=== PATIENT | female | born 1945 | race Caucasian/White ===

== ENCOUNTER → 2017-05-07 | Day surgery (SDC) | payer MEDICARE ==
[~2017-05-07] MED LIST: AMLO2.5T PO; ASPI81TA11 PO; ATOR1TAB18 PO; BUPIVACAINE HCL PF 0.75% 30 ML VIAL ONE; CALC1TAB69 PO; GABA300C5 PO; HYDR-3516 PO; HYDR-3535 PO; LISI10TA3 PO; LOSA50TA PO; METO50TA11 PO; OCUVTAB4 PO; PROPOFOL 200 MG/20 ML AMP IV ONE; PROZ20CA11 PO; TRIAMCINOLONE ACETONIDE 40 MG/ML VIAL I-ARTICULR ONE
--- NOTE | 2017-05-11 17:41 | M6 ---
cc: KOSTA WAGGONER M.D. DATE: 05/07/2017 DATE OF : 1945 PROCEDURE Fluoroscopically guided injection bilateral lumbar facet joints (bilateral L3-4, L4-5 and L5-S1 facet joints). History and physical was completed and signed. Consent was signed. Procedure site was marked. Medications were listed and reconciled. Pain score was recorded. Allergies were noted. Time out was taken. Fluoroscopy time was recorded where applicable. Sedation was administered or directed by Dr. Waggoner. The patient was given oxygen. The patient was monitored by a registered nurse. Total procedure time was greater than 15 minutes. IV was started, blood pressure cuff, pulse oximeter and EKG were applied. The patient was placed in the prone position on a Constantin table sedated with small amounts of propofol titrated to effect. Vital signs were monitored and remained stable throughout the procedure. Fluoroscopy was used in a Tru dog view to clearly visualize the bilateral lumbar facet joints at L3-4, L4-5 and L5-S1. Separate sterile 3-1/2-inch 25-gauge spinal needles were advanced into these joints under fluoroscopic guidance. There was negative aspiration for blood or any other type of fluid and at each location the patient was given 1 mL of Marcaine 0.75% which contained 10 mg of Kenalog. Following the procedure the patient was taken to the recovery room with stable vital signs neurologically intact. She will be evaluated immediately and with followup. W. MD DYAN Winters/lilian /9:09 AM /5:34 PM
== END | disposition home or self-care (01) ==
LOC: PHSDC 06:44
PROVIDERS: ATTEND Pain Medicine Interventional Pain Medicine
DX: M54.5 Low back pain (principal); I10 Essential (primary) hypertension; I25.2 Old myocardial infarction; K21.9 Gastro-esophageal reflux disease without esophagitis
CPT/HCPCS: 64493; 64494; 64495; 99152; J3301

== ENCOUNTER → 2018-01-24 | Day surgery (SDC) | payer MEDICARE ==
[~2018-01-24] MED LIST changes: +ACETAMINOPHEN/HYDROcodone 325 MG/5 MG TAB ONE; -ASPI81TA11 PO; +ASPI81TA23 PO; -ATOR1TAB18 PO; -BUPIVACAINE HCL PF 0.75% 30 ML VIAL ONE; -CALC1TAB69 PO; +CALC625T13 PO; -GABA300C5 PO; +KETOROLAC TROMETHAMINE 30 MG/ML (IVP) VIAL IV PUSH ONE; +LACTATED RINGER'S 1000 ML INJ 1,000 ML ONE; -LISI10TA3 PO; +METO1TAB9 PO; -METO50TA11 PO; +MIDAZOLAM HCL 2 MG/2 ML VIAL ONE; +ONDANSETRON HCL 4 MG/2 ML VIAL IV PUSH ONE; -PROZ20CA11 PO; +SODIUM CHLORIDE 0.9% 100 ML BAG IV ONE; -TRIAMCINOLONE ACETONIDE 40 MG/ML VIAL I-ARTICULR ONE; +ceFAZolin INJ 1,000 MG VIAL ONE
--- NOTE | 2018-01-24 18:10 | TN ---
cc: Zeeshan Calderón MD DATE OF SURGERY: 01/24/2018 DATE OF SURGERY: 01/24/2018 PREOPERATIVE DIAGNOSIS: Right breast invasive ductal carcinoma. POSTOPERATIVE DIAGNOSIS: Right breast invasive ductal carcinoma. PROCEDURE PERFORMED: 1. Needle localized lumpectomy (partial mastectomy), right breast. 2. Right axillary sentinel lymph node biopsy. 3. Placement of intraoperative radiation therapy catheter. ATTENDING SURGEON: Zeeshan Calderón MD GLOBAL TRANSPORTATION MANAGER SURGEONS: CEDRIC Castro. ESTIMATED BLOOD LOSS: 25 mL. COMPLICATIONS: None. FINDINGS: 1. Two sentinel lymph nodes, hot, minimally palpable. No other palpable lymph nodes in the right axilla. 2. A less than 1 cm palpable mass at the site of the needle localization with intraoperative consultation showing a clip and mass in the specimen. 3. IORT performed by Dr. Mateo salcedo with the size 4.0 radiation probe. INDICATIONS FOR PROCEDURE: The patient is a 72-year-old female who was recently diagnosed with right breast invasive ductal carcinoma. The patient is undergoing evaluation for possible breast conservation and was found to be a candidate for treatment as the patient had clinical stage I disease. After discussion with the patient about the risks, benefits and alternatives to needle localized lumpectomy, sentinel lymph node biopsy and IORT, she agreed to undergo the procedure. Nurse practitioner, Suri Marcial's presence was required throughout the procedure due to her experience and expertise in the lumpectomy and IORT procedure. Myself and CEDRIC Bagley were present and scrubbed for all the above procedures. DESCRIPTION OF PROCEDURE: The patient was taken to the operating room at [facility], placed in the supine position where patient underwent LMA airway and a general anesthetic. The patient had undergone preoperative lymphoscintigraphy as well as needle localization of the right breast. We performed the sentinel lymph node biopsy first. We used local anesthetic below the right axillary hairline and incised this with a 15 blade scalpel. We used Bovie electrocautery to dissect through the subcutaneous tissue and open the clavipectoral fascia. Once we got into the axillary fat pad, we used the probe to guide us and the 2 lymph nodes that were hot and palpable were found in normal anatomic location. These were excised completely with the Bovie electrocautery. We got excellent hemostasis with the Bovie electrocautery. These both were adjacent nodes and were both hot and palpable. They were passed off for permanent processing. The background of the axilla was noted and no further sentinel nodes were found with palpation or with the probe. We irrigated out the right axilla while suctioning it clear. We closed the clavipectoral fascia with interrupted 3-0 Vicryl suture. We closed the skin with 4-0 Monocryl and Dermabond. We then turned our attention towards the lumpectomy. We performed periareolar incision above the areola with a 15 blade scalpel after instillation of local anesthetic. This was approximately 25% of the circumferential areolar margin. We used Bovie electrocautery to dissect through the subcutaneous tissue and into the breast parenchyma as we tunneled superiorly, as the patient's mass was superior to the nipple. We dissected down to the area of the mass as identified by the wire. We dissected 360 degrees around the specimen and divided the wire with the wire cutters. The portion of the wire outside of the skin was removed and passed off of the field. We then used again Bovie electrocautery to take the posterior margin, which was well above the pectoralis fascia and removed the specimen from the patient. It was marked with a short stitch superior and a long stitch lateral, and the wire was oriented in the specimen from medial to lateral. We then had grossly negative margins down the specimen. I did elect to perform additional margins as the patient was planned to get IORT and has quite dense breast tissue and to ensure complete removal of the specimen and decrease the chance of false positive margins. We took 6 margins anterior, posterior, medial, lateral, superior, and inferior with the Metzenbaum scissors. These were marked with a stitch for true margin and passed off individually as specimens for pathologic processing. We, at this point in time, ensured we had excellent hemostasis in the cavity. We sized this. This was approximately 4 cm. We used the 4.0 cm IORT probe into the lumpectomy cavity and it fit just about perfectly in the lumpectomy cavity abutting all the tissue and edges of the cavity and all margins. We did place a pursestring suture of 0 Prolene subcutaneously at the incision and pulled this down to ensure good position of all tissue to the probe. Ultrasound revealed adequate skin margins per Dr. Venegas's evaluation who was present throughout this portion of the procedure. We at this point in time did have confirmation that the specimen was removed by radiology and we proceeded with IORT per protocol. Please see Dr. Venegas's separate documentation. Once this was performed, we removed the IORT probe and shielding in standard fashion. The pursestring suture was removed from the patient. I inspected the cavity. There was all viable tissue with no evidence of any bleeding or complication. We closed the breast parenchyma with interrupted 3-0 Vicryl sutures. We closed the skin with 4-0 Monocryl and Dermabond was applied. At this point in time, the patient was discontinued from anesthesia and taken to the PACU in stable condition. The patient tolerated the procedure well. There were no apparent complications. All counts were correct. Myself and nurse practitioner, Suri Marcial were present and scrubbed for the entire procedure. MD AMOR Yi/PHOEBE , 05:04 PM , 06:09 PM
== END | disposition home or self-care (01) ==
LOC: ESDC 09:04
PROVIDERS: ATTEND Surgery
DX: C50.911 Malignant neoplasm of unspecified site of right female breast (principal)
CPT/HCPCS: 00400; 01610; 19294; 19301; 38525; 88307; J0690; J1885; J2250; J2405; J3010; J7120; 77290; 77300; 77334; 77370; 77424; 77469

== ENCOUNTER 2018-02-01 09:41 | Inpatient (IN) | payer MEDICARE ==
[~2018-02-01] VITALS: Ht 160 cm; Wt 76.7 kg
[~2018-02-01 09:41] MED LIST changes: -ACETAMINOPHEN/HYDROcodone 325 MG/5 MG TAB ONE; -KETOROLAC TROMETHAMINE 30 MG/ML (IVP) VIAL IV PUSH ONE; -LACTATED RINGER'S 1000 ML INJ 1,000 ML ONE; -MIDAZOLAM HCL 2 MG/2 ML VIAL ONE; -ONDANSETRON HCL 4 MG/2 ML VIAL IV PUSH ONE; -PROPOFOL 200 MG/20 ML AMP IV ONE; -SODIUM CHLORIDE 0.9% 100 ML BAG IV ONE; -ceFAZolin INJ 1,000 MG VIAL ONE
[2018-02-01 09:43] VITALS: BP 149/67; PULSE 101; RESP 16; TEMP 99.7; O2SAT 96
[2018-02-01] MEDS ORDERED: PANT20TA2 PO (10:07)
[2018-02-01] MEDS ORDERED: EZET10 PO (10:07)
[2018-02-01] MEDS ORDERED: FIBE625T10 PO (10:07)
[2018-02-01] MEDS ORDERED: PROZ20CA11 PO (10:07)
[2018-02-01] MEDS ORDERED: ARTHTAB5 PO (10:07)
--- NOTE | 2018-02-01 10:16 | PD ---
HPI Chief Complaint: Abdominal Pain Time Seen by Provider: 09:55 Travel History International Travel<30 days: No Contact w/Intl Traveler<30days: No Traveled to known affect area: No History of Present Illness HPI Patient reports that the emergency department complaint of constipation recently had a lumpectomy last week for breast cancer, but only took one Lortab for pain. States that she had no bowel movement Sunday or Sunday, and took Senokot Sunday night. At that time she developed left-sided abdominal pain. Then tried mag citrate and fleets enema the recommendation of the surgeon, but no relief. She also took Dulcolax suppository last night and reportedly passed out little bit of liquid stool about 4 AM today and more at 8 AM today. She reports decreased appetite and p.o. intake other than water. Abdominal pain is described as being diffuse lower abdomen, intermittent, last approximately 1 or 2 minutes duration, nonradiating, no alleviating or aggravating factors. No fever but reports chills, no nausea but reports an episode of post tussive emesis last night (water), positive dysuria, no urinary frequency, and she reports passing flatus. She denies chest pain or shortness of breath or recent antibiotic use. PFSH Past Medical History Hx Anticoagulant Therapy: Yes (BABY ASA DAILY) Cancer: Yes (Breast ) Cardiovascular Problems: Yes (VT, HTN, STENT) High Cholesterol: Yes Diabetes: No Endocrine: No Gastrointestinal Disorders: Yes (GERD, BLOCKAGE BILE DUCT) Genitourinary: No Hepatitis: No Hiatal Hernia: No Hypertension: Yes Immune Disorder: No Medical other: No Musculoskeletal: Yes (SCIATICA GONZALO., ARTHRITIS) Neurologic: Yes (RIGHT FACIAL STEVENSON'S PALSY HX) Psychiatric: Yes (DEPRESSION) Reproductive: No Respiratory: No Thyroid Disease: No Tetanus Vaccination: > 5 Years Influenza Vaccination: Yes ?: Not Past Surgical History Abdominal Surgery: Yes (CHOLECYSTECTOMY) AICD: No Body Medical Devices: STENT IN BILE DUCT Cardiac Surgery: No Ear Surgery: No Endocrine Surgery: No Eye Surgery: No Genitourinary Surgery: No Gynecologic Surgery: No Joint Replacement: No Oral Surgery: Yes (T & A) Pacemaker: No Thoracic Surgery: No Other Surgery: Yes (ERCP, Rt. lumpectomy ) Family History Narrative Family History CVA, coronary artery disease Social History Alcohol Use: Yes (Rare) Tobacco Use: No Substance Use: No Allergies-Medications (Allergen,Severity, Reaction): Coded Allergies: No Known Allergies (Unverified Adverse Reaction, Unknown, 02/01/18) Reported Meds & Prescriptions Reported Meds & Active Scripts Active Reported Fiber (Calcium Polycarbophil) 625 Mg Tab 625 Mg PO BID Prozac (Fluoxetine HCl) 20 Mg Cap 20 Mg PO DAILY Arthrotec 75 (Diclofenac-Misoprostol) 75-0.2 Mg Tab 1 Tab PO BID Pantoprazole (Pantoprazole Sodium) 20 Mg Tab 20 Mg PO DAILY Zetia (Ezetimibe) 10 Mg Tab 10 Mg PO DAILY Amlodipine (Amlodipine Besylate) 2.5 Mg Tab 2.5 Mg PO DAILY Hydrocodone-Acetaminophen 5-325 mg Tab 1 Tab PO Q6H PRN Aspirin EC (Aspirin) 81 Mg Tabdr 81 Mg PO DAILY Losartan (Losartan Potassium) 50 Mg Tab 50 Mg PO BID Metoprolol Succinate ER 24 HR (Metoprolol Succinate) 50 Mg Tab 50 Mg PO TID Preservision Areds (Multiple Vitamins W/ Minerals) 1 Tab 1 Tab PO BID Review of Systems Except as stated in HPI: all other systems reviewed are Neg Physical Exam Narrative GENERAL: No acute distress SKIN: Focused skin assessment warm/dry. HEAD: Atraumatic. Normocephalic. EYES: Ocular muscles intact. No scleral icterus. No injection or drainage. ENT: No nasal bleeding or discharge. Mucous membranes pink and moist. NECK: Trachea midline. No JVD. CARDIOVASCULAR: Regular rate and rhythm. No murmur appreciated. RESPIRATORY: No accessory muscle use. Clear to auscultation. Breath sounds equal bilaterally. GASTROINTESTINAL: Abdomen soft, effuse tenderness, nondistended. Hepatic and splenic margins not palpable. MUSCULOSKELETAL: No obvious deformities. No clubbing. No cyanosis. No edema. NEUROLOGICAL: Awake and alert. No obvious cranial nerve deficits. Motor grossly within normal limits. Normal speech. PSYCHIATRIC: Appropriate mood and affect; insight and judgment normal. Data Data Last Documented VS Vital Signs Date Time Temp Pulse Resp B/P (MAP) Pulse Ox O2 Delivery O2 Flow Rate FiO2 02/01/18 11:10 97 14 124/63 (83) 95 Room Air 02/01/18 09:43 99.7 Orders Orders Urinalysis - C+S If Indicated (02/01/18 09:43) Complete Blood Count With Diff (4/20/18 10:08) Comprehensive Metabolic Panel (02/01/18 10:08) Lipase (02/01/18 10:08) Abdomen, Flat & Upright (02/01/18 ) Ct Abd/Pel W Iv Contrast(Rout) (02/01/18 11:51) Iohexol 350 Inj (Omnipaque 350 Inj) (02/01/18 12:22) Lactic Acid (02/01/18 13:09) Sodium Chlor 0.9% 1000 Ml Inj (Ns 1000 M (02/01/18 13:45) Sodium Chlor 0.9% 1000 Ml Inj (Ns 1000 M (02/01/18 14:00) Labs Laboratory Tests Test 02/01/18 10:30 02/01/18 11:06 02/01/18 13:20 White Blood Count 20.4 TH/MM3 Red Blood Count 4.70 MIL/MM3 Hemoglobin 14.7 GM/DL Hematocrit 43.6 % Mean Corpuscular Volume 92.9 FL Mean Corpuscular Hemoglobin 31.2 PG Mean Corpuscular Hemoglobin Concent 33.6 % Red Cell Distribution Width 14.2 % Platelet Count 301 TH/MM3 Mean Platelet Volume 7.1 FL Neutrophils (%) (Auto) 80.4 % Lymphocytes (%) (Auto) 5.2 % Monocytes (%) (Auto) 10.3 % Eosinophils (%) (Auto) 0.6 % Basophils (%) (Auto) 3.5 % Neutrophils # (Auto) 16.4 TH/MM3 Lymphocytes # (Auto) 1.1 TH/MM3 Monocytes # (Auto) 2.1 TH/MM3 Eosinophils # (Auto) 0.1 TH/MM3 Basophils # (Auto) 0.7 TH/MM3 CBC Comment DIFF FINAL Differential Comment Blood Urea Nitrogen 19 MG/DL Creatinine 1.00 MG/DL Random Glucose 161 MG/DL Total Protein 6.9 GM/DL Albumin 2.7 GM/DL Calcium Level 8.9 MG/DL Alkaline Phosphatase 99 U/L Aspartate Amino Transf (AST/SGOT) 14 U/L Alanine Aminotransferase (ALT/SGPT) 17 U/L Total Bilirubin 0.6 MG/DL Sodium Level 138 MEQ/L Potassium Level 3.8 MEQ/L Chloride Level 99 MEQ/L Carbon Dioxide Level 28.8 MEQ/L Anion Gap 10 MEQ/L Estimat Glomerular Filtration Rate 54 ML/MIN Lipase 42 U/L Urine Collection Type CLEAN CATCH Urine Color YELLOW Urine Turbidity CLEAR Urine pH 5.0 Urine Specific [place] GREATER/EQUAL 1.030 Urine Protein 30 mg/dL Urine Glucose (UA) NEG mg/dL Urine Ketones 40 mg/dL Urine Occult Blood NEG Urine Nitrite POS Urine Bilirubin NEG Urine Urobilinogen 1.0 MG/DL Urine Leukocyte Esterase TRACE Urine WBC 3-5 /hpf Urine Squamous Epithelial Cells 0-5 /hpf Microscopic Urinalysis Comment CULT NOT INDICATED Urine Collection Time 11:06 Lactic Acid Level 1.5 mmol/L MDM Medical Decision Making Medical Screen Exam Complete: Yes Emergency Medical Condition: Yes Interpretation(s) Last Impressions Abdomen/Pelvis CT 02/01/18 1151 Signed Impressions: Service Date/Time: Thursday, February 01, 2018 12:08 - CONCLUSION: 1. Abnormal left colon diagnostic of a colitis. There is circumferential wall thickening involving the distal half of the transverse colon, the entire descending colon , and the proximal sigmoid colon. Infectious, inflammatory, or ischemic etiologies should be considered. 2. There is mild to moderate atherosclerotic disease. No mesenteric vascular occlusion is seen. 3. There is trace free fluid in the pelvis, likely reactive secondary to the colon inflammation. Aj Ibanez MD Abdomen X-Ray 02/01/18 0000 Signed Impressions: Service Date/Time: Thursday, February 01, 2018 10:19 - CONCLUSION: Nonspecific bowel gas pattern. I do not see renal stone. Usman Troncoso MD FACR Differential Diagnosis Bowel obstruction, constipation, diverticular disease, abdomen perforation, UTI , pancreatitis Narrative Course Patient presents the emergency department with abdominal pain and constipation. Will check abdominal series x-ray and labs. Elevated wbc count, normmal lactate, will order CT abd/pelvis. Ct + for colitis, spoke with patient's GI doctor, Dr. Finney. Advised to hold abx, give IVF, admit, and they will see patient in hospital today. 1423: Admit to hospitalist in ER. Physician Communication Physician Communication 1307: Called patient's GI doctor, Dr. Finney. 1340: Dr. Finney-> Admit patient, they will see her this evening, IV hydration, no antibiotics as this is likely low flow state, dehydration. Written for 1L IV NS and 125cc/hr IV after bolus. 1427: Admitted to hospitalist, who is in ER. Diagnosis Primary Impression: Colitis Admitting Information Admitting Physician Requests: Admit Condition: Stable Awa Long MD Feb 01, 2018 10:16
[2018-02-01 10:43] LABS: AUTOMATED NEUTROPHIL # 16.4 TH/MM3 (1.8-7.7); BASOPHIL # 0.7 TH/MM3 (0-0.2); BASOPHIL % 3.5 % (0.0-2.0); EOSINOPHIL # 0.1 TH/MM3 (0-0.4); EOSINOPHIL % 0.6 % (0.0-4.0); HEMATOCRIT 43.6 % (35.0-46.0); HEMOGLOBIN 14.7 GM/DL (11.6-15.3); LYMPH % 5.2 % (9.0-44.0); LYMPHOCYTE # 1.1 TH/MM3 (1.0-4.8); MEAN CELL VOLUME 92.9 FL (80.0-100.0); MEAN CORPUSCULAR HEMOGLOBIN 31.2 PG (27.0-34.0); MEAN CORPUSCULAR HGB CONC 33.6 % (32.0-36.0); MEAN PLATELET VOLUME 7.1 FL (7.0-11.0); MONO % 10.3 % (0.0-8.0); MONOCYTE # 2.1 TH/MM3 (0-0.9); NEUT % 80.4 % (16.0-70.0); PLATELET COUNT 301 TH/MM3 (150-450); RED CELL DISTRIBUTION WIDTH 14.2 % (11.6-17.2); WHITE BLOOD COUNT 20.4 TH/MM3 (4.0-11.0)
[2018-02-01 10:51] LABS: CHLORIDE 99 MEQ/L (98-107); SODIUM (NA) 138 MEQ/L (136-145)
[2018-02-01 10:54] LABS: CALCIUM 8.9 MG/DL (8.5-10.1)
[2018-02-01 10:55] LABS: ALBUMIN 2.7 GM/DL (3.4-5.0); BICARBONATE 28.8 MEQ/L (21.0-32.0); BLOOD UREA NITROGEN 19 MG/DL (7-18); GLUCOSE,RANDOM 161 MG/DL (74-106)
[2018-02-01 10:57] LABS: ALT (GPT) 17 U/L (10-53); AST (GOT) 14 U/L (15-37)
[2018-02-01 10:58] LABS: GLOMERULAR FILTRATION RATE 54 ML/MIN (>89)
[2018-02-01 10:59] LABS: TOTAL BILIRUBIN ADULT 0.6 MG/DL (0.2-1.0); TOTAL PROTEIN 6.9 GM/DL (6.4-8.2)
[2018-02-01 11:00] LABS: ALKALINE PHOSPHATASE 99 U/L (45-117)
[2018-02-01 11:10] VITALS: BP 124/63; PULSE 97; RESP 14; O2SAT 95
[2018-02-01 11:13] LABS: BLOOD, URINE NEG (NEG); GLUCOSE,URINE NEG (NEG); KETONE, URINE 40 mg/dL (NEG); NITRITE,URINE POS (NEG); URINE COLOR YELLOW (YELLW/STRAW); URINE LEUKOCYTE ESTERASE TRACE (NEG)
[2018-02-01 11:19] LABS: BILIRUBIN, URINE NEG (NEG)
[2018-02-01 11:20] LABS: SQUAMOUS EPITHELIAL CELL URINE 0-5 /hpf (0-5)
--- NOTE | 2018-02-01 11:48 | RADRPT ---
EXAM DATE/TIME: 02/01/2018 10:19 [facility] COMPARISON: No previous studies available for comparison. INDICATIONS : Left side abdominal pain x 2 days. Patient is post of right breast lumpectomy last week. MEDICAL HISTORY : Myocardial infarction. Hypercholesterolemia. Carcinoma, breast. Bealls palsy. Hypertension. GERD. Arthritis. SURGICAL HISTORY : Tonsillectomy. Cholecystectomy. Total knee replacement, left. Cardiac stent. Right lumpectomy. ENCOUNTER: Initial ACUITY: 2 days PAIN SCORE: 6/10 LOCATION: Left abeomen FINDINGS: Lung base is are clear. The right lower lumbar scoliosis with extensive degenerative changes. Nonsp ecific bowel gas pattern. Degenerative changes about the hips. CONCLUSION: Nonspecific bowel gas pattern. I do not see renal stone. Usman Troncoso MD FACR on February 01, 2018 at 11:45 Board Certified Radiologist. This report was verified electronically.
[2018-02-01] MEDS ORDERED: IOHEXOL 350 MG/ML 10 ML VIAL (for RAD DIAG) IVCONTRAST ONE (12:22)
--- NOTE | 2018-02-01 12:36 | RADRPT ---
EXAM DATE/TIME: 02/01/2018 12:08 [facility] COMPARISON: No previous studies available for comparison. INDICATIONS : Diffuse abdominal pain. Constipation. IV CONTRAST: 85 cc Omnipaque 350 (iohexol) IV ORAL CONTRAST: No oral contrast ingested. RADIATION DOSE: 14.40 CTDIvol (mGy) MEDICAL HISTORY : Carcinoma, breast. Gastroesophageal reflux disease. Myocardial infarction.Mckenzie Palsy. Hypertension. SURGICAL HISTORY : Cholecystectomy. Coronary artery stent.Right breast lumpectomy. ENCOUNTER: Initial ACUITY: 2 days PAIN SCALE: 5/10 LOCATION: Diffuse abdomen. TECHNIQUE: Volumetric scanning of the abdomen and pelvis was performed. Using automated exposure control and ad justment of the mA and/or kV according to patient size, radiation dose was kept as low as reasonably achievable to obtain optimal diagnostic quality images. DICOM format image data is available electro nically for review and comparison. FINDINGS: LOWER LUNGS: The visualized lower lungs are clear. LIVER: Homogeneous density without lesion. There is no dilation of the biliary tree. Gallbladder is absent . SPLEEN: Normal size without lesion. PANCREAS: No acute abnormality. KIDNEYS: Normal in size and shape. There is no mass, stone or hydronephrosis. ADRENAL GLANDS: Within normal limits. VASCULAR: There is no aortic aneurysm. There is mild to moderate atherosclerotic disease. The venous mesenteric vasculature is patent. The superior mesenteric artery demonstrates atherosclerotic calcification but appears patent. BOWEL/MESENTERY: A small hiatal hernia is present. Small bowel is within normal limits. Terminal ileum is normal. Ther e is circumflex branch rule out wall thickening of the colon involving the distal half of the transve rse colon, the entire descending colon, and the proximal sigmoid colon. Sigmoid diverticulosis is pre sent. There is trace free fluid in the pelvis. No free air is seen. ABDOMINAL WALL: Within normal limits. RETROPERITONEUM: There is no lymphadenopathy. BLADDER: No wall thickening or mass. REPRODUCTIVE: Within normal limits. INGUINAL: There is no lymphadenopathy or hernia. MUSCULOSKELETAL: There are degenerative changes of the lumbar spine with levoscoliosis. CONCLUSION: 1. Abnormal left colon diagnostic of a colitis. There is circumferential wall thickening involving th e distal half of the transverse colon, the entire descending colon, and the proximal sigmoid colon. I nfectious, inflammatory, or ischemic etiologies should be considered. 2. There is mild to moderate atherosclerotic disease. No mesenteric vascular occlusion is seen. 3. There is trace free fluid in the pelvis, likely reactive secondary to the colon inflammation. Aj Ibanez MD on February 01, 2018 at 12:28 Board Certified Radiologist. This report was verified electronically.
[2018-02-01 13:20] VITALS: BP 123/71; PULSE 94; RESP 14; O2SAT 95
[2018-02-01] MEDS ORDERED: SODIUM CHLOR 0.9% 1000 ML INJ 1,000 ML IV ONE (13:45)
[2018-02-01] MEDS ORDERED: SODIUM CHLOR 0.9% 1000 ML INJ 1,000 ML IV SCH (14:00)
[2018-02-01] MEDS: LACTATED RINGER'S 1000 ML INJ 1,000 ML IV SCH (15:34)
[2018-02-01 15:40] VITALS: BP 126/67; PULSE 92; RESP 14; O2SAT 96
--- NOTE | 2018-02-01 15:44 | HHI.HP ---
[facility] Service [facility] Primary [facility] Physician Markus Andrews MD Admission Diagnosis colitis Diagnoses: Chief Complaint: Abdominal pain Travel History International Travel<30 Days: No Contact w/Intl Traveler <30 Da: No Traveled to Known Affected Are: No Sepsis Criteria SIRS Criteria (2 or more): Heart rate over 90, WBC > 39190, < 4000 or > 10% bands History of Present Illness This patient is a 72-year-old female who came to the emergency room complaining of 2 days duration of severe abdominal pain in the left lower quadrant which occurred after 5 days of constipation. She then had to liquid stools this morning after a generous regimen of laxatives and stool softeners. After the bowel movement thirst the pain did not resolve so she came to the emergency room. She denies fevers or chills but did have significant nausea and vomiting which was nonbloody nonbilious. She recently had a lumpectomy for breast cancer. She did not take a significant course of pain medication postprocedure. There is no recent travel. No previous episodes of intestinal troubles other than a biliary stent some time ago that she saw Dr. Hi for. No sick contacts. No change in diet. Patient has been evaluated in the emergency room and found to be tachycardic with elevated white cell count and low-grade temperature as well as CT findings of colitis. On exam she is quite tender with some guarding in the abdominal exam. She says the pain is better if she does not move and worse with movement. For these reasons the patient's been admitted to the hospital Review of Systems Constitutional: COMPLAINS OF: Change in appetite, DENIES: Diaphoretic episodes , Fatigue, Fever, Weight gain, Weight loss, Chills, Dizziness, Night Sweats Endocrine: DENIES: Abnorml menstrual pattern, Heat/cold intolerance, Polydipsia , Polyuria, Polyphagia Eyes: DENIES: Blurred vision, Diplopia, Eye inflammation, Eye pain, Vision loss , Photosensitivity, Double Vision Ears, nose, mouth, throat: DENIES: Tinnitus, Hearing loss, Vertigo, Nasal discharge, Oral lesions, Throat pain, Hoarseness, Ear Pain, Running Nose, Epistaxis, Sinus Pain, Toothache, Odynophagia Respiratory: DENIES: Apneas, Cough, Snoring, Wheezing, Hemoptysis, Sputum production, Shortness of breath Cardiovascular: DENIES: Chest pain, Palpitations, Syncope, Dyspnea on Exertion , PND, Lower Extremity Edema, Orthopnea, Claudication Gastrointestinal: COMPLAINS OF: Abdominal pain, Constipation, Diarrhea, Nausea , Vomiting, DENIES: Black stools, Bloody stools, Difficulty Swallowing, Anorexia Genitourinary: DENIES: Abnormal vaginal bleeding, Dysmenorrhea, Dyspareunia, Sexual dysfunction, Urinary frequency, Urinary incontinence, Urgency, Hematuria , Dysuria, Nocturia, Vaginal discharge Musculoskeletal: COMPLAINS OF: Back pain, DENIES: Joint pain, Muscle aches, Stiffness, Joint Swelling, Neck pain Integumentary: DENIES: Abnormal pigmentation, Pruritus, Rash, Nail changes, Breast masses, Breast skin changes, Nipple discharge Hematologic/lymphatic: DENIES: Bruising, Lymphadenopathy Immunologic/allergic: DENIES: Eczema, Urticaria Neurologic: DENIES: Abnormal gait, Headache, Localized weakness, Paresthesias, Seizures, Speech Problems, Tremor, Poor Balance Psychiatric: DENIES: Anxiety, Confusion, Mood changes, Depression, Hallucinations, Agitation, Suicidal Ideation, Homicidal Ideation, Delusions Except as stated in HPI: all other systems reviewed are Neg Past Family Social History Past Medical History 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 Hypertension breast cancer Coronary artery disease with [place] Past Surgical History Crystal stent Coronary stent Cholecystectomy Lumpectomy of the breast recently Reported Medications Reviewed in the EMR, nothing new Allergies: Coded Allergies: No Known Allergies (Unverified Adverse Reaction, Unknown, 02/01/18) Active Ordered Medications Reviewed in the EMR Family History Father at 89 of old age Mother at 92 Social History No current tobacco or alcohol dependency, lives with her and is a retired accountant helper Physical Exam Vital Signs Vital Signs Date Time Temp Pulse Resp B/P (MAP) Pulse Ox O2 Delivery O2 Flow Rate FiO2 02/01/18 11:10 97 14 124/63 (83) 95 Room Air 02/01/18 09:43 99.7 101 16 149/67 (94) 96 Physical Exam GENERAL: This is a well-nourished, well-developed patient, in no apparent distress. SKIN: No rashes, ecchymoses or lesions. Cool and dry. HEAD: Atraumatic. Normocephalic. No temporal or scalp tenderness. EYES: Pupils equal round and reactive. Extraocular motions intact. No scleral icterus. No injection or drainage. ENT: Nose without bleeding, purulent drainage or septal hematoma. Throat without erythema, tonsillar hypertrophy or exudate. Uvula midline. Airway patent. NECK: Trachea midline. No JVD or lymphadenopathy. Supple, nontender, no meningeal signs. CARDIOVASCULAR: Regular rate and rhythm without murmurs, gallops, or rubs. RESPIRATORY: Clear to auscultation. Breath sounds equal bilaterally. No wheezes , rales, or rhonchi. GASTROINTESTINAL: Abdomen soft, tender in the lower quadrant, mildly distended. No hepato-splenomegaly, or palpable masses. Minimal guarding. Hypoactive bowel sounds MUSCULOSKELETAL: Extremities without clubbing, cyanosis, or edema. No joint tenderness, effusion, or edema noted. No calf tenderness. Negative Homans sign bilaterally. NEUROLOGICAL: Awake and alert. Cranial nerves II through XII intact. Motor and sensory grossly within normal limits. Five out of 5 muscle strength in all muscle groups. Normal speech. Laboratory Laboratory Tests Test 02/01/18 10:30 02/01/18 11:06 02/01/18 13:20 White Blood Count 20.4 Red Blood Count 4.70 Hemoglobin 14.7 Hematocrit 43.6 Mean Corpuscular Volume 92.9 Mean Corpuscular Hemoglobin 31.2 Mean Corpuscular Hemoglobin Concent 33.6 Red Cell Distribution Width 14.2 Platelet Count 301 Mean Platelet Volume 7.1 Neutrophils (%) (Auto) 80.4 Lymphocytes (%) (Auto) 5.2 Monocytes (%) (Auto) 10.3 Eosinophils (%) (Auto) 0.6 Basophils (%) (Auto) 3.5 Neutrophils # (Auto) 16.4 Lymphocytes # (Auto) 1.1 Monocytes # (Auto) 2.1 Eosinophils # (Auto) 0.1 Basophils # (Auto) 0.7 CBC Comment DIFF FINAL Differential Comment Blood Urea Nitrogen 19 Creatinine 1.00 Random Glucose 161 Total Protein 6.9 Albumin 2.7 Calcium Level 8.9 Alkaline Phosphatase 99 Aspartate Amino Transf (AST/SGOT) 14 Alanine Aminotransferase (ALT/SGPT) 17 Total Bilirubin 0.6 Sodium Level 138 Potassium Level 3.8 Chloride Level 99 Carbon Dioxide Level 28.8 Anion Gap 10 Estimat Glomerular Filtration Rate 54 Lipase 42 Urine Collection Type CLEAN CATCH Urine Color YELLOW Urine Turbidity CLEAR Urine pH 5.0 Urine Specific [place] GREATER/EQUAL 1.030 Urine Protein 30 Urine Glucose (UA) NEG Urine Ketones 40 Urine Occult Blood NEG Urine Nitrite POS Urine Bilirubin NEG Urine Urobilinogen 1.0 Urine Leukocyte Esterase TRACE Urine WBC 3-5 Urine Squamous Epithelial Cells 0-5 Microscopic Urinalysis Comment CULT NOT INDICATED Urine Collection Time 11:06 Lactic Acid Level 1.5 Result Diagram: 02/01/18 1030 02/01/18 1030 Imaging Last Impressions Abdomen/Pelvis CT 02/01/18 1151 Signed Impressions: Service Date/Time: Thursday, February 01, 2018 12:08 - CONCLUSION: 1. Abnormal left colon diagnostic of a colitis. There is circumferential wall thickening involving the distal half of the transverse colon, the entire descending colon , and the proximal sigmoid colon. Infectious, inflammatory, or ischemic etiologies should be considered. 2. There is mild to moderate atherosclerotic disease. No mesenteric vascular occlusion is seen. 3. There is trace free fluid in the pelvis, likely reactive secondary to the colon inflammation. Aj Ibanez MD Abdomen X-Ray 02/01/18 0000 Signed Impressions: Service Date/Time: Thursday, February 01, 2018 10:19 - CONCLUSION: Nonspecific bowel gas pattern. I do not see renal stone. Usman Troncoso MD FACR Septic Shock Reassessment Septic shock perfusion: reassessment completed Caprini VTE Risk Assessment Caprini VTE Risk Assessment: Mod/High Risk (score >= 2) Caprini Risk Assessment Model Point Value = 1 Point Value = 2 Point Value = 3 Point Value = 5 Age 41-60 Minor surgery BMI > 25 kg/m2 Swollen legs Varicose veins or History of unexplained or recurrent spontaneous Oral contraceptives or hormone replacement Sepsis (< 1 month) Serious lung disease, including pneumonia (< 1 month) Abnormal pulmonary function Acute myocardial infarction Congestive heart failure (< 1 month) History of inflammatory bowel disease Medical patient at bed rest Age 61-74 Arthroscopic surgery Major open surgery (> 45 min) Laparoscopic surgery (> 45 min) Malignancy Confined to bed (> 72 hours) Immobilizing plaster cast Central venous access Age >= 75 History of VTE Family history of VTE Factor V Leiden Prothrombin [id number] Lupus anticoagulant Anticardiolipin antibodies Elevated serum homocysteine Heparin-induced thrombocytopenia Other congenital or acquired thrombophilia Stroke (< 1 month) Elective arthroplasty Hip, pelvis, or leg fracture Acute spinal cord injury (< 1 month) Prophylaxis Regimen Total Risk Factor Score Risk Level Prophylaxis Regimen 0-1 Low Early ambulation 2 Moderate Order ONE of the following: *Sequential Compression Device (SCD) *Heparin 5000 units SQ BID 3-4 Higher Order ONE of the following medications: *Heparin 5000 units SQ TID *Enoxaparin/Lovenox 40 mg SQ daily (WT < 150 kg, CrCl > 30 mL/min) *Enoxaparin/Lovenox 30 mg SQ daily (WT < 150 kg, CrCl > 10-29 mL/min) *Enoxaparin/Lovenox 30 mg SQ BID (WT < 150 kg, CrCl > 30 mL/min) AND/OR *Sequential Compression Device (SCD) 5 or more Highest Order ONE of the following medications: *Heparin 5000 units SQ TID (Preferred with Epidurals) *Enoxaparin/Lovenox 40 mg SQ daily (WT < 150 kg, CrCl > 30 mL/min) *Enoxaparin/Lovenox 30 mg SQ daily (WT < 150 kg, CrCl > 10-29 mL/min) *Enoxaparin/Lovenox 30 mg SQ BID (WT < 150 kg, CrCl > 30 mL/min) AND *Sequential Compression Device (SCD) Assessment and Plan Problem List: (1) Abdominal pain ICD Code: R10.9 - Unspecified abdominal pain Plan: Secondary to colitis, continue IV fluids, IV antibiotics and pain management Follow-up with GI for further recommendations Clear liquids Rule out C. difficile (2) Colitis ICD Code: K52.9 - Noninfective gastroenteritis and colitis, unspecified Status: Acute Plan: Continue with antibiotic and medical management as above (3) Sepsis ICD Code: A41.9 - Sepsis, unspecified organism Plan: Secondary to acute colitis, patient with leukocytosis, tachycardia and low-grade temperature Physician Certification 2 Midnight Certification Type: Admission for Inpatient Services Order for Inpatient Services The services are ordered in accordance with Medicare regulations or non- Medicare payer requirements, as applicable. In the case of services not specified as inpatient-only, they are appropriately provided as inpatient services in accordance with the 2-midnight benchmark. Estimated LOS (days): 3 3 days is the estimated time the patient will need to remain in the hospital, assuming treatment plan goals are met and no additional complications. Post-Hospital Plan: Home Albertina Hurt MD Feb 01, 2018 15:44
[2018-02-01] MEDS ORDERED: MAGNESIUM HYDROXIDE SUSP 30 ML CUP PO PRN (15:45)
[2018-02-01] MEDS: PANTOPRAZOLE SOD 20 MG DELAYED RELEASE TAB PO SCH (15:45)
[2018-02-01] MEDS ORDERED: NALOXONE HCL 0.4 MG/ML AMP IV PUSH PRN (15:45)
[2018-02-01] MEDS ORDERED: SODIUM CHLORIDE 0.9% FLUSH 10 ML FLUSH IV FLUSH PRN (15:45)
[2018-02-01] MEDS ORDERED: ONDANSETRON HCL 4 MG/2 ML VIAL IVP PRN (15:45)
[2018-02-01] MEDS ORDERED: ACETAMINOPHEN 325 MG TAB PO PRN (15:45)
[2018-02-01 17:00] VITALS: BP 164/75; PULSE 82; RESP 18; TEMP 99.6; O2SAT 96
[2018-02-01] MEDS: METOPROLOL SUCCINATE 50 MG EXTENDED RELEASE TAB PO SCH (17:45)
[2018-02-01] MEDS: MORPHINE SULFATE 2 MG/ML SYRINGE IV PUSH PRN (17:46)
[2018-02-01] MEDS: metroNIDAZOLE 500 MG INJ 100 ML IV SCH (17:46)
[2018-02-01] MEDS: CIPROFLOXACIN 400 MG PREMIX 200 ML IV SCH (17:46)
--- NOTE | 2018-02-01 18:09 | MB ---
cc: Steve Brito MD, Sunil P MD Moulis,Marcos Andrews,Markus Hurt,Albertina Elaine MD DATE: 02/01/2018 REASON FOR CONSULTATION: I am asked to see the patient at the request of Dr. Hurt for evaluation of an abnormal CAT scan and colitis. HISTORY OF PRESENT ILLNESS: The patient is a pleasant 72-year-old white female with history of recent diagnosis of breast cancer as well as coronary artery disease, who apparently on Sunday was constipated. She had taken her Lortab because of recent breast lumpectomy. She did not have a bowel movement for a couple of days and on Sunday, she decided to take a laxative - she believes it was a Senna type medication. This did not help. She then She then tried mag citrate, Fleet's enemas and she also took a Dulcolax and eventually she had a little bit loose bowel movement early this morning but developed a severe left side pain ( left lower quadrant pain). She could not describe it, except that it hurt a lot. This is associated nausea and vomiting and is bilious. No blood in the vomitus or the stool. She came to the emergency room. A CAT scan showed colitis of the left colon. We have been asked to evaluate this. The patient denies any dysphagia, odynophagia or early satiety. No melena, hematochezia, glo diarrhea. No recent travel history. She may have been on antibiotics in the hospital. She is not sure. Her last colonoscopy was in 2011 and it was unremarkable, except for diverticulosis. PAST MEDICAL HISTORY: Significant for hypertension, [place], cardiac stenting. She has had GERD in the past, nothing at this time. She had markedly increased LFTs and a dilated bile duct. She had an ERCP with sphincterotomy (this is done with difficulty) and a stent was in the pancreatic duct and this passed spontaneously. Her LFTs did improve afterwards. She has also a history of arthritis, sciatica, depression, Villa's palsy. PAST SURGICAL HISTORY: Includes a cholecystectomy, colonoscopy in 2011 which was unremarkable, a pancreatic stent at the time of the ERCP. She had a tonsillectomy also and a right lumpectomy. FAMILY HISTORY: Not significant for colon cancer or colon polyps. SOCIAL HISTORY: Does not currently smoke. Drinks alcohol very rarely. There is no substance abuse. ALLERGIES: SHE DENIES ANY ALLERGIES TO ME. MEDICATIONS: 1. Prozac. 2. Arthrotek. 3. Pantoprazole. 4. Zetia for dyslipidemia. 5. Amlodipine. 6. Hydrocodone. 7. Aspirin. 8. Fiber. 9. Losartan. 10. Metoprolol. MEDICATIONS AN INPATIENT: 1. Cipro. 2. Flagyl. 3. Aspirin. 4. Prozac. 5. Cozaar. 6. Toprol. 7. Tylenol. 8. Zofran. 9. Narcan. 10. Milk of Magnesia as needed. 11. Pantoprazole. REVIEW OF SYSTEMS: CONSTITUTIONAL: No weight loss, fevers or chills. CARDIOPULMONARY: No chest pain, palpitation, wheezing or shortness of breath. GASTROINTESTINAL: Please see above. Otherwise unremarkable 12-point review of systems. PHYSICAL EXAMINATION: VITAL SIGNS: Blood pressure is 126/67, respiratory rate of 14. Temperature 99.7. Pulse of 92. It was as high as 101 before. GENERAL: She is an elderly, white female, overweight, appears to be resting comfortably at this time. No acute GI distress. HEENT: Pupils equal, round, reactive to light. No obvious scleral icterus. Oropharyngeal cavity had dental caries. No tongue deviation or candidal lesions, hearing was intact. NECK: Supple. No thyromegaly or lymphadenopathy. LUNGS:. Clear to auscultation. HEART: Regular rate and rhythm. No gross murmurs are heard. ABDOMEN: Soft, nondistended. Diffuse tenderness throughout, but more significant in the left lower quadrant. No rebound tenderness or guarding. RECTAL: Not done. ABDOMEN: There is no organomegaly or masses. Bowel sounds positive in all quadrants. No ascites. EXTREMITIES: No signs of clubbing or edema. NEUROLOGIC: She is alert and oriented x3. Cranial nerves are grossly intact. No gross sensory or motor deficits. SKIN: Warm and moist. LABORATORY DATA: White blood count 20,400, hemoglobin 14.7, hematocrit 43.6, MCV 92.9, platelet count of 301,000. Her BUN is 19, is elevated; creatinine of 1.00, is normal. Potassium 3.8, sodium 138, SGOT of 14, SGPT is 17, alkaline phosphatase of 99, albumin slightly low at 2.7. Lipase is 42 which is low. Lactic acid 1.5 which is normal. IMAGING STUDIES: Abdominal x-ray - flat plate and upright revealed a nonspecific bowel gas pattern. There is some extensive degenerative changes and some lumbar scoliosis. A CT scan abdomen and pelvis done today with contrast revealed the small hiatal hernia. There is circumferential wall thickening of the colon involving the distal half of the transverse colon, the entire descending colon and a proximal sigmoid colon. There is also sigmoid diverticulosis. There is trace fluid in the pelvis. Of note there is no aortic aneurysm, but there is mild to moderate atherosclerotic disease of the aorta. The venous mesenteric vascular is patent. The superior mesenteric artery demonstrates atherosclerotic calcification but appears patent. IMPRESSION: 1. Abnormal CAT scan - shows colitis. 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 This might have been exacerbated by constipation and dehydration as well as nonsteroidal antiinflammatory drugs. Also in the differential is somewhat infectious colitis and even Clostridium difficile. In regard to infectious colitis, I asked her in detail whether she had anything unusual to eat or going to some type of picnic where she could corn picker some form of poorly cooked meat to point to hamburger colitis/Escherichia coli colitis, but she denies this. She is also not had any glo diarrhea. I suspect this is ischemic colitis. She also understands I cannot rule out inflammatory bowel disease. 2. Mild to moderate atherosclerotic disease of the aorta. No obvious mesenteric vascular occlusion was noted. 3. History of common bile duct dilatation in the past. She had markedly elevated liver function tests. Her liver function tests are currently normal. The bile duct appears to be normal at this time. 4. Nausea and vomiting better at this time. Suspect reactive to the colitis. RECOMMENDATIONS: 1. We talked in detail about the appropriate treatment of ischemic colitis. It usually involves bowel rest and copious intravenous fluids. She also understands that whether this is ischemic colitis or infectious colitis, it usually resolves on its own. In the case of a ischemic colitis, one third of the time it can go on to stricturing as well as bowel perforation. 2. Clostridium difficile has been ordered by the primary service and will await this. 3. No colonoscopy indicated at this time because of increased risk of perforation. However, if she worsens and she may need an operation. We may need to look to determine whether it is ischemic colitis or not. 4. Again, we will watch her carefully and, if she is worsening, we will have to get surgery involved. MD KARRI Fonseca/SA/ , 04:43 PM , 05:27 PM CARLOS
[2018-02-01 20:00] VITALS: BP 132/60; PULSE 81; RESP 20; TEMP 99.1; O2SAT 93
[2018-02-01] MEDS: LOSARTAN 50 MG TAB PO SCH (21:18)
[2018-02-01] MEDS: SODIUM CHLORIDE 0.9% FLUSH 10 ML FLUSH IV FLUSH SCH (21:18)
[2018-02-02] VITALS: BP 132/60; PULSE 84; RESP 20; TEMP 99; O2SAT 93
[2018-02-02] MEDS: MORPHINE SULFATE 2 MG/ML SYRINGE IV PUSH PRN (01:16)
[2018-02-02] MEDS: metroNIDAZOLE 500 MG INJ 100 ML IV SCH ×2 (01:16→08:32)
[2018-02-02] MEDS: LACTATED RINGER'S 1000 ML INJ 1,000 ML IV SCH ×2 (03:57→17:58)
[2018-02-02] MEDS: CIPROFLOXACIN 400 MG PREMIX 200 ML IV SCH (03:57)
[2018-02-02 08:00] VITALS: BP 146/68; PULSE 78; RESP 18; TEMP 98.6; O2SAT 96
[2018-02-02 08:20] LABS: AUTOMATED NEUTROPHIL # 10.4 TH/MM3 (1.8-7.7); BASOPHIL % 0.2 % (0.0-2.0); EOSINOPHIL # 0.3 TH/MM3 (0-0.4); HEMATOCRIT 35.2 % (35.0-46.0); LYMPH % 10.6 % (9.0-44.0); LYMPHOCYTE # 1.4 TH/MM3 (1.0-4.8); MEAN CELL VOLUME 93.1 FL (80.0-100.0); MEAN CORPUSCULAR HEMOGLOBIN 31.3 PG (27.0-34.0); MEAN CORPUSCULAR HGB CONC 33.6 % (32.0-36.0); MEAN PLATELET VOLUME 7.3 FL (7.0-11.0); MONO % 11.8 % (0.0-8.0); MONOCYTE # 1.6 TH/MM3 (0-0.9); NEUT % 75.4 % (16.0-70.0); PLATELET COUNT 240 TH/MM3 (150-450); RED BLOOD COUNT 3.78 MIL/MM3 (4.00-5.30); RED CELL DISTRIBUTION WIDTH 13.8 % (11.6-17.2); WHITE BLOOD COUNT 13.7 TH/MM3 (4.0-11.0)
[2018-02-02 08:21] LABS: HEMOGLOBIN 11.8 GM/DL (11.6-15.3)
[2018-02-02] MEDS: FLUoxetine HCL 20 MG CAP PO SCH (08:29)
[2018-02-02] MEDS: PANTOPRAZOLE SOD 20 MG DELAYED RELEASE TAB PO SCH (08:29)
[2018-02-02] MEDS: METOPROLOL SUCCINATE 50 MG EXTENDED RELEASE TAB PO SCH ×3 (08:29→17:28)
[2018-02-02] MEDS: ASPIRIN EC 81 MG TABEC PO SCH (08:30)
[2018-02-02] MEDS: SODIUM CHLORIDE 0.9% FLUSH 10 ML FLUSH IV FLUSH SCH ×2 (08:30→21:03)
[2018-02-02] MEDS: LOSARTAN 50 MG TAB PO SCH ×2 (08:30→21:03)
[2018-02-02 08:41] LABS: BICARBONATE 28.8 MEQ/L (21.0-32.0); CALCIUM 7.8 MG/DL (8.5-10.1); CREATININE 0.58 MG/DL (0.50-1.00)
--- NOTE | 2018-02-02 10:08 | PD.PN.STU ---
Subjective Remarks 72 yo female admitted for severe abdominal pain and sepsis likely secondary to ischemic colitis. She is clinically improving with significantly decreased pain. Lose bowel movement this morning without blood. Tolerated clear liquid diet well. Objective Vitals Vital Signs Date Time Temp Pulse Resp B/P (MAP) Pulse Ox O2 Delivery O2 Flow Rate FiO2 02/02/18 02:16 20 02/02/18 00:00 99.0 84 20 132/60 (84) 93 02/01/18 20:00 99.1 81 20 132/60 (84) 93 02/01/18 17:00 99.6 82 18 164/75 (104) 96 02/01/18 16:55 02/01/18 15:40 92 14 126/67 (86) 96 Room Air 02/01/18 13:20 94 14 123/71 (88) 95 Room Air 02/01/18 11:10 97 14 124/63 (83) 95 Room Air I/O 02/01/18 02/01/18 02/01/18 02/02/18 02/02/18 02/02/18 07:00 15:00 23:00 07:00 15:00 23:00 Intake Total 2000 ml 1420 ml Output Total 1000 ml Balance 2000 ml 420 ml Intake Oral 120 ml IV Total 2000 ml 1300 ml Output Urine Total 1000 ml # Bowel Movements 2 Result Diagram: 02/02/18 0645 02/02/18 0645 Other Results Laboratory Tests Test 02/01/18 10:30 02/01/18 11:06 02/01/18 13:20 02/02/18 01:20 White Blood Count 20.4 TH/MM3 (4.0-11.0) Neutrophils (%) (Auto) 80.4 % (16.0-70.0) Lymphocytes (%) (Auto) 5.2 % (9.0-44.0) Monocytes (%) (Auto) 10.3 % (0.0-8.0) Basophils (%) (Auto) 3.5 % (0.0-2.0) Neutrophils # (Auto) 16.4 TH/MM3 (1.8-7.7) Monocytes # (Auto) 2.1 TH/MM3 (0-0.9) Basophils # (Auto) 0.7 TH/MM3 (0-0.2) Blood Urea Nitrogen 19 MG/DL (7-18) Random Glucose 161 MG/DL (74-106) Albumin 2.7 GM/DL (3.4-5.0) Aspartate Amino Transf (AST/SGOT) 14 U/L (15-37) Estimat Glomerular Filtration Rate 54 ML/MIN (>89) Lipase 42 U/L (73-393) Urine Protein 30 mg/dL (NEG-TRACE) Urine Ketones 40 mg/dL (NEG) Urine Nitrite POS (NEG) Urine Leukocyte Esterase TRACE (NEG) Test 02/02/18 06:45 White Blood Count 13.7 TH/MM3 (4.0-11.0) Red Blood Count 3.78 MIL/MM3 (4.00-5.30) Neutrophils (%) (Auto) 75.4 % (16.0-70.0) Monocytes (%) (Auto) 11.8 % (0.0-8.0) Neutrophils # (Auto) 10.4 TH/MM3 (1.8-7.7) Monocytes # (Auto) 1.6 TH/MM3 (0-0.9) Calcium Level 7.8 MG/DL (8.5-10.1) Imaging Last Impressions Abdomen/Pelvis CT 02/01/18 1151 Signed Impressions: Service Date/Time: Thursday, February 01, 2018 12:08 - CONCLUSION: 1. Abnormal left colon diagnostic of a colitis. There is circumferential wall thickening involving the distal half of the transverse colon, the entire descending colon , and the proximal sigmoid colon. Infectious, inflammatory, or ischemic etiologies should be considered. 2. There is mild to moderate atherosclerotic disease. No mesenteric vascular occlusion is seen. 3. There is trace free fluid in the pelvis, likely reactive secondary to the colon inflammation. Aj Ibanez MD Abdomen X-Ray 02/01/18 0000 Signed Impressions: Service Date/Time: Thursday, February 01, 2018 10:19 - CONCLUSION: Nonspecific bowel gas pattern. I do not see renal stone. Usman Troncoso MD FACR Objective Remarks GENERAL: This is a well-nourished, well-developed patient, in no apparent distress CARDIOVASCULAR: Regular rate and rhythm without murmurs, gallops, or rubs. RESPIRATORY: Clear to auscultation. Breath sounds equal bilaterally. No wheezes , rales, or rhonchi. GASTROINTESTINAL: Abdomen soft, diffusely tender to palpation though significantly improved, nondistended. Normal active bowel sounds. MUSCULOSKELETAL: Extremities without clubbing, cyanosis, or edema. NEURO: Alert & Oriented x4 to person, place, time, situation. Moves all ext x4 A/P Assessment and Plan Problem List: (1) Abdominal pain ICD Code: R10.9 - Unspecified abdominal pain Plan: Secondary to colitis, continue IV fluids, IV antibiotics and pain management Follow-up with GI for further recommendations Clear liquids Rule out C. difficile 02/02 Clinically improving with significantly decreased pain and small bowel movement this morning. C diff negative. Will advance diet today and transition to PO antibiotics. (2) Colitis ICD Code: K52.9 - Noninfective gastroenteritis and colitis, unspecified Status: Acute Plan: Continue with antibiotic and medical management as above 02/02 GI believes likely ischemic process, agrees with current management and will follow up outpatient after discharge. (3) Sepsis ICD Code: A41.9 - Sepsis, unspecified organism Plan: Secondary to acute colitis, patient with leukocytosis, tachycardia and low-grade temperature 02/02 WBC trending down, 13.7 today. Vitals stable over night. Management discussed above. 4. abnormal UA trace leukocyte esterase, nitrates, ketones. Asymptomatic with good urination this morning. No medical management indicated. Medical Decision Making Impression and Plan Patient seen and evaluated today in follow-up for abdominal pain with colitis, likely ischemic. Overall greatly improved. Would like to advance diet. C. difficile negative. Care plan discussed with patient, nursing team and spouse GENERAL: This is a well-nourished, well-developed patient, in no apparent distress. CARDIOVASCULAR: Regular rate and rhythm without murmurs, gallops, or rubs. RESPIRATORY: Clear to auscultation. Breath sounds equal bilaterally. No wheezes , rales, or rhonchi. GASTROINTESTINAL: Abdomen soft, minimally tender, nondistended. Normal active bowel sounds MUSCULOSKELETAL: Extremities without clubbing, cyanosis, or edema. NEURO: Alert & Oriented x4 to person, place, time, situation. Moves all ext x4 Assessment plan #1 colitis, likely ischemic Continue with empiric antibiotics for now and taper to p.o. Continue current course and advance diet #2. Asymptomatic abnormal urinalysis. Follow clinically Likely discharge in [place] M3 Feb 02, 2018 10:08 Albertina Hurt MD Feb 02, 2018 10:35
--- NOTE | 2018-02-02 11:50 | HHI.GIFU ---
GI Follow-up Note Consult Follow-up Subjective: Patient laying in bed and is feeling much better. No GI bleeding noted. Abdominal pain present but much improved. Tolerated clear liquids well Objective: PHYSICAL EXAMINATION: Vitals signs stable No fever HEENT: no jaundice. Throat is clear. NECK: no lymphadenopathy. CHEST: Chest is clear to auscultation and percussion. CARDIAC: Regular rate and rhythm with no murmur gallop or rubs. ABDOMEN: Soft, nondistended, mild tenderness in lower abdomen. Better than before. No rebound tenderness. no hepatosplenomegaly; bowel sounds are present in all four quadrants. EXTREMITIES: No edema. 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 Available Data (labs, X- Rays, Procedues) : White blood cell count improved. C. difficile negative ASSESSMENT/PLAN: 1. Abnormal CAT scan - shows colitis. I suspect ischemic colitis. Patient has improved but her abdominal exam still shows some tenderness 2. Mild to moderate atherosclerotic disease of the aorta. No obvious mesenteric vascular occlusion was noted. 3. History of common bile duct dilatation in the past. Her LFTs are normal 4. Nausea and vomiting better at this time. RECOMMENDATIONS: 1. Continue IV fluids. Discuss with PCP. 2. If she continues to do well can advance diet slowly 3. No colonoscopy indicated at this time because of increased risk of perforation. However, if she worsens and she may need an operation. We may need to look to determine whether it is ischemic colitis or not. 4. Again, we will watch her carefully and, if she is worsening, we will have to get surgery involved. It was a pleasure seeing Marta Loza. Thank you for this consult. Entered by: Steve Kaba MD Feb 02, 2018 11:50
[2018-02-02 12:00] VITALS: BP 182/72; PULSE 68; RESP 18; TEMP 97.5; O2SAT 95
[2018-02-02] MEDS: metroNIDAZOLE 500 MG TAB PO SCH ×2 (12:36→21:23)
[2018-02-02 16:00] VITALS: BP 155/70; PULSE 66; RESP 18; TEMP 98; O2SAT 94
[2018-02-02 20:00] VITALS: BP 184/73; PULSE 70; RESP 20; TEMP 99; O2SAT 96
[2018-02-02] MEDS: CIPROFLOXACIN 500 MG TAB PO SCH (21:03)
[2018-02-03] VITALS: BP 152/66; PULSE 73; RESP 20; TEMP 99; O2SAT 93
[2018-02-03] MEDS: metroNIDAZOLE 500 MG TAB PO SCH (05:51)
[2018-02-03] MEDS: LACTATED RINGER'S 1000 ML INJ 1,000 ML IV SCH (07:40)
[2018-02-03 08:09] VITALS: BP 188/88; PULSE 76; RESP 18; O2SAT 97
[2018-02-03] MEDS: METOPROLOL SUCCINATE 50 MG EXTENDED RELEASE TAB PO SCH (08:11)
[2018-02-03] MEDS: PANTOPRAZOLE SOD 20 MG DELAYED RELEASE TAB PO SCH (08:11)
[2018-02-03] MEDS: FLUoxetine HCL 20 MG CAP PO SCH (08:11)
[2018-02-03] MEDS: LOSARTAN 50 MG TAB PO SCH (08:11)
[2018-02-03] MEDS: SODIUM CHLORIDE 0.9% FLUSH 10 ML FLUSH IV FLUSH SCH (08:11)
[2018-02-03] MEDS: CIPROFLOXACIN 500 MG TAB PO SCH (08:11)
[2018-02-03] MEDS: ASPIRIN EC 81 MG TABEC PO SCH (08:11)
[2018-02-03 08:25] LABS: AUTOMATED NEUTROPHIL # 7.2 TH/MM3 (1.8-7.7); BASOPHIL % 0.5 % (0.0-2.0); EOSINOPHIL # 0.4 TH/MM3 (0-0.4); EOSINOPHIL % 4.3 % (0.0-4.0); HEMATOCRIT 34.3 % (35.0-46.0); HEMOGLOBIN 11.3 GM/DL (11.6-15.3); LYMPH % 11.2 % (9.0-44.0); LYMPHOCYTE # 1.1 TH/MM3 (1.0-4.8); MEAN CELL VOLUME 92.3 FL (80.0-100.0); MEAN CORPUSCULAR HEMOGLOBIN 30.3 PG (27.0-34.0); MEAN CORPUSCULAR HGB CONC 32.8 % (32.0-36.0); MEAN PLATELET VOLUME 7.4 FL (7.0-11.0); MONO % 10.7 % (0.0-8.0); MONOCYTE # 1.1 TH/MM3 (0-0.9); NEUT % 73.3 % (16.0-70.0); PLATELET COUNT 235 TH/MM3 (150-450); RED BLOOD COUNT 3.71 MIL/MM3 (4.00-5.30); RED CELL DISTRIBUTION WIDTH 13.3 % (11.6-17.2); WHITE BLOOD COUNT 9.8 TH/MM3 (4.0-11.0)
[2018-02-03] MEDS ORDERED: METR-1 PO (08:27)
[2018-02-03] MEDS ORDERED: CIPR-9 PO (08:27)
[2018-02-03] MEDS ORDERED: LACTCHW3 CHEW (08:27)
--- NOTE | 2018-02-03 08:28 | HHI.DCPOC ---
Discharge Care Plan Diagnosis: (1) Colitis (2) Sepsis Goals to Promote Your Health * To prevent worsening of your condition and complications * To maintain your health at the optimal level Directions to Meet Your Goals Take your medications as prescribed Follow your dietary instruction Follow activity as directed Keep your appointments as scheduled Take your immunizations and boosters as scheduled If your symptoms worsen call your PCP, if no PCP go to Urgent Care Center or Emergency Room Smoking is Dangerous to Your Health. Avoid second hand smoke Call the 24-hour hour crisis hotline for domestic abuse at Albertina Hurt MD Feb 03, 2018 08:28
--- NOTE | 2018-02-03 08:29 | HHI.DS ---
Discharge Summary Admission Date Feb 01, 2018 at 14:31 Discharge Date: Feb 03, 2018 Admitting Diagnosis colitis (1) Abdominal pain ICD Code: R10.9 - Unspecified abdominal pain (2) Colitis ICD Code: K52.9 - Noninfective gastroenteritis and colitis, unspecified Status: Acute (3) Sepsis ICD Code: A41.9 - Sepsis, unspecified organism Procedures None Brief History - From Admission This patient is a 72-year-old female who came to the emergency room complaining of 2 days duration of severe abdominal pain in the left lower quadrant which occurred after 5 days of constipation. She then had to liquid stools this morning after a generous regimen of laxatives and stool softeners. After the bowel movement thirst the pain did not resolve so she came to the emergency room. She denies fevers or chills but did have significant nausea and vomiting which was nonbloody nonbilious. She recently had a lumpectomy for breast cancer. She did not take a significant course of pain medication postprocedure. There is no recent travel. No previous episodes of intestinal troubles other than a biliary stent some time ago that she saw Dr. Hi for. No sick contacts. No change in diet. Patient has been evaluated in the emergency room and found to be tachycardic with elevated white cell count and low-grade temperature as well as CT findings of colitis. On exam she is quite tender with some guarding in the abdominal exam. She says the pain is better if she does not move and worse with movement. For these reasons the patient's been admitted to the hospital CBC/BMP: 02/03/18 0654 02/02/18 0645 Significant Findings Laboratory Tests Test 02/01/18 10:30 02/01/18 11:06 02/01/18 13:20 02/02/18 01:20 White Blood Count 20.4 TH/MM3 (4.0-11.0) Neutrophils (%) (Auto) 80.4 % (16.0-70.0) Lymphocytes (%) (Auto) 5.2 % (9.0-44.0) Monocytes (%) (Auto) 10.3 % (0.0-8.0) Basophils (%) (Auto) 3.5 % (0.0-2.0) Neutrophils # (Auto) 16.4 TH/MM3 (1.8-7.7) Monocytes # (Auto) 2.1 TH/MM3 (0-0.9) Basophils # (Auto) 0.7 TH/MM3 (0-0.2) Blood Urea Nitrogen 19 MG/DL (7-18) Random Glucose 161 MG/DL (74-106) Albumin 2.7 GM/DL (3.4-5.0) Aspartate Amino Transf (AST/SGOT) 14 U/L (15-37) Estimat Glomerular Filtration Rate 54 ML/MIN (>89) Lipase 42 U/L (73-393) Urine Protein 30 mg/dL (NEG-TRACE) Urine Ketones 40 mg/dL (NEG) Urine Nitrite POS (NEG) Urine Leukocyte Esterase TRACE (NEG) Test 02/02/18 06:45 02/03/18 06:54 White Blood Count 13.7 TH/MM3 (4.0-11.0) Red Blood Count 3.78 MIL/MM3 (4.00-5.30) 3.71 MIL/MM3 (4.00-5.30) Neutrophils (%) (Auto) 75.4 % (16.0-70.0) 73.3 % (16.0-70.0) Monocytes (%) (Auto) 11.8 % (0.0-8.0) 10.7 % (0.0-8.0) Neutrophils # (Auto) 10.4 TH/MM3 (1.8-7.7) Monocytes # (Auto) 1.6 TH/MM3 (0-0.9) 1.1 TH/MM3 (0-0.9) Calcium Level 7.8 MG/DL (8.5-10.1) Hemoglobin 11.3 GM/DL (11.6-15.3) Hematocrit 34.3 % (35.0-46.0) Eosinophils (%) (Auto) 4.3 % (0.0-4.0) Imaging Last Impressions Abdomen/Pelvis CT 02/01/18 1151 Signed Impressions: Service Date/Time: Thursday, February 01, 2018 12:08 - CONCLUSION: 1. Abnormal left colon diagnostic of a colitis. There is circumferential wall thickening involving the distal half of the transverse colon, the entire descending colon , and the proximal sigmoid colon. Infectious, inflammatory, or ischemic etiologies should be considered. 2. There is mild to moderate atherosclerotic disease. No mesenteric vascular occlusion is seen. 3. There is trace free fluid in the pelvis, likely reactive secondary to the colon inflammation. Aj Ibanez MD Abdomen X-Ray 02/01/18 0000 Signed Impressions: Service Date/Time: Thursday, February 01, 2018 10:19 - CONCLUSION: Nonspecific bowel gas pattern. I do not see renal stone. Usman Troncoso MD FACR PE at Discharge GENERAL: This is a well-nourished, well-developed patient, in no apparent distress. CARDIOVASCULAR: Regular rate and rhythm without murmurs, gallops, or rubs. RESPIRATORY: Clear to auscultation. Breath sounds equal bilaterally. No wheezes , rales, or rhonchi. GASTROINTESTINAL: Abdomen soft, non-tender, nondistended. Normal active bowel sounds MUSCULOSKELETAL: Extremities without clubbing, cyanosis, or edema. NEURO: Alert & Oriented x4 to person, place, time, situation. Moves all ext x4 Pt update on day of discharge Patient doing much better today. Seen in follow-up for colitis which is likely ischemic. Patient tolerating antibiotics well. Discharge plans discussed with patient. Pain is improved. Ambulatory without difficulty Hospital Course This patient is a 72-year-old female with a history of coronary artery disease who came with abdominal pain. She was found to have colitis which is likely ischemic however it was unclear at the time and patient was empirically started on antibiotics. She did well. She did require some IV hydration pain medication. Diet was advanced and patient was discharged home. She saw gastroneurology consultation prior to discharge to agree with the plan and for outpatient endoscopy which will be done Pt Condition on Discharge: Good Discharge Disposition: Discharge Home Discharge Time: <= 30 minutes Discharge Instructions DIET: Follow Instructions for: Heart Healthy Diet Activities you can perform: Regular-No Restrictions Follow up Referrals: Gastroenterology - 1 Week with Marcos Finney MD New Medications: Lactobacillus Acidophilus (Lactinex) 1 Chew 1 TAB CHEW TID for Nutritional Supplement for 10 Days, #30 TAB 0 Refills Ciprofloxacin (Cipro) 500 Mg Tab 500 MG PO Q12HR for Infection, #6 TAB Metronidazole (Flagyl) 500 Mg Tab 500 MG PO Q8HR for Infection, #9 TAB Continued Medications: Amlodipine (Amlodipine) 2.5 Mg Tab 2.5 MG PO DAILY for Blood Pressure Management, #30 TAB [address] (Aspirin EC) 81 Mg Tabdr 81 MG PO DAILY, TAB 0 Refills Calcium Polycarbophil (Fiber) 625 Mg Tab 625 MG PO BID, TAB 0 Refills Diclofenac-Misoprostol (Arthrotec 75) 75-0.2 Mg Tab 1 TAB PO BID for Pain Management, #60 TAB 0 Refills Ezetimibe (Zetia) 10 Mg Tab 10 MG PO DAILY, #30 TAB 0 Refills Fluoxetine (Prozac) 20 Mg Cap 20 MG PO DAILY, #30 CAP 0 Refills Hydrocodone-Acetaminophen (Hydrocodone-Acetaminophen) 5-325 mg Tab 1 TAB PO Q6H PRN for PAIN, TAB 0 Refills Losartan (Losartan) 50 Mg Tab 50 MG PO BID for Blood Pressure Management, #30 TAB 0 Refills Metoprolol Succinate ER 24 HR (Metoprolol Succinate ER 24 HR) 50 Mg Tab 50 MG PO TID, #30 TAB 0 Refills Multiple Vitamins W/ Minerals (Preservision Areds) 1 Tab 1 TAB PO BID for Nutritional Supplement, TAB 0 Refills Pantoprazole (Pantoprazole) 20 Mg Tab 20 MG PO DAILY for Reflux, #30 TAB 0 Refills Albertina Hurt MD Feb 03, 2018 08:29
== END 2018-02-03 09:45 | disposition home or self-care (01) | DRG 871 ==
LOC: PHED 09:41 → PHEDA 14:31 → PH3A 17:00
PROVIDERS: ADMIT Hospitalist; ATTEND Hospitalist
DX: A41.9 Sepsis, unspecified organism (principal); K55.039 Acute (reversible) ischemia of large intestine, extent unspecified; C50.911 Malignant neoplasm of unspecified site of right female breast; I10 Essential (primary) hypertension; K59.00 Constipation, unspecified; I25.2 Old myocardial infarction; I25.10 Atherosclerotic heart disease of native coronary artery without angina pectoris; K21.9 Gastro-esophageal reflux disease without esophagitis; E78.00 Pure hypercholesterolemia, unspecified; K52.9 Noninfective gastroenteritis and colitis, unspecified; I70.0 Atherosclerosis of aorta; R82.90 Unspecified abnormal findings in urine; F32.9 Major depressive disorder, single episode, unspecified; Z95.5 Presence of coronary angioplasty implant and graft
CPT/HCPCS: 74019; 74177; 80048; 80053; 81001; 83605; 83690; 85025; 87493; 99285; J0744; J2270; J7030; J7120; Q9967

== ENCOUNTER → 2018-02-18 | Outpatient (CLI) | payer MEDICARE ==
[~2018-02-18] MED LIST changes: +ANAS1TAB PO; +ARTHTAB5 PO; -CALC625T13 PO; +CIPR-9 PO; +COLA100C5 PO; +EZET10 PO; +FIBE625T10 PO; -HYDR-3535 PO; +LACTCHW3 CHEW; +METR-1 PO; +PANT20TA2 PO; +PROZ20CA11 PO
[2018-02-18 13:51] LABS: AUTOMATED NEUTROPHIL # 4.4 TH/MM3 (1.8-7.7); BASOPHIL % 0.7 % (0.0-2.0); EOSINOPHIL # 0.3 TH/MM3 (0-0.4); EOSINOPHIL % 4.5 % (0.0-4.0); HEMATOCRIT 37.7 % (35.0-46.0); HEMOGLOBIN 12.8 GM/DL (11.6-15.3); LYMPH % 19.6 % (9.0-44.0); LYMPHOCYTE # 1.3 TH/MM3 (1.0-4.8); MEAN CELL VOLUME 93.1 FL (80.0-100.0); MEAN CORPUSCULAR HEMOGLOBIN 31.6 PG (27.0-34.0); MEAN PLATELET VOLUME 7.2 FL (7.0-11.0); MONO % 10.5 % (0.0-8.0); MONOCYTE # 0.7 TH/MM3 (0-0.9); NEUT % 64.7 % (16.0-70.0); PLATELET COUNT 332 TH/MM3 (150-450); RED BLOOD COUNT 4.05 MIL/MM3 (4.00-5.30); RED CELL DISTRIBUTION WIDTH 14.2 % (11.6-17.2); WHITE BLOOD COUNT 6.7 TH/MM3 (4.0-11.0)
[2018-02-18 13:54] LABS: BILIRUBIN, URINE NEG (NEG); BLOOD, URINE NEG (NEG); GLUCOSE,URINE NEG (NEG); KETONE, URINE NEG (NEG); NITRITE,URINE NEG (NEG); URINE COLOR YELLOW (YELLW/STRAW); URINE LEUKOCYTE ESTERASE TRACE (NEG)
[2018-02-18 14:03] LABS: MUCUS URINE FEW /lpf (OCC)
[2018-02-18 14:04] LABS: BACTERIA, URINE OCC /hpf; RBC, URINE 0-3 /hpf (0-3); SQUAMOUS EPITHELIAL CELL URINE 0-5 /hpf (0-5); WBC, URINE 15-19 /hpf (0-5); WHITE BLOOD CELL CLUMPS OCC
== END ==
LOC: PHPRE 12:49
PROVIDERS: ATTEND Pain Medicine Interventional Pain Medicine
DX: Z01.812 Encounter for preprocedural laboratory examination (principal); M54.5 Low back pain; B96.89 Other specified bacterial agents as the cause of diseases classified elsewhere
CPT/HCPCS: 36415; 81001; 84132; 85025; 87086

== ENCOUNTER → 2018-02-20 | Day surgery (SDC) | payer MEDICARE | END | disposition home or self-care (01) | LOC: PHSDC 08:22 | DX: M54.2 Cervicalgia (principal); Z53.09 Procedure and treatment not carried out because of other contraindication ==

== ENCOUNTER → 2018-02-28 | Day surgery (SDC) | payer MEDICARE ==
[~2018-02-28] MED LIST changes: -CIPR-9 PO; -LACTCHW3 CHEW; +LIDOCAINE HCL 1% 30 ML VIAL INFIL ONE; +MEPERIDINE HCL 25 MG/ML VIAL IV ONE; -METR-1 PO; +PROPOFOL 200 MG/20 ML AMP IV ONE; +SODIUM CHLORIDE 0.9% 10 ML VIAL ONE; +TRIAMCINOLONE ACETONIDE 40 MG/ML VIAL NERV BLOCK ONE
--- NOTE | 2018-02-28 10:21 | M6 ---
cc: Porter Waggoner MD DATE: 02/28/2018 PROCEDURE PERFORMED: Fluoroscopically guided T1-T2 interlaminar epidural steroid injection. History and physical was completed and signed. Consent was signed. Procedure site was marked. Medications were listed and reconciled. Pain score was recorded. Allergies were noted. Time out was taken. Fluoroscopy time was recorded where applicable. Sedation was administered or directed by Dr. Waggoner. The patient was given oxygen. The patient was monitored by a registered nurse. Total procedure time was greater than 15 minutes. IV was started. Blood pressure cuff, pulse oximeter, and EKG were applied. The patient was placed in the prone position on a Constantin table, sedated with small amounts of propofol, titrated to effect. Vital signs were monitored and remained stable throughout the procedure. Cervical area was prepped with alcohol and 10% Betadine solution and draped with sterile drapes. Fluoroscopy was used to visualize the T1-T2 interlaminar space. The skin was infiltrated with 1% Xylocaine, using a 27-gauge needle. Then, a 3-1/2 inch 18-gauge Rice needle was advanced using fluoroscopic guidance and the loss of resistance technique into the epidural space at T1-T2, slightly to the left of the midline. There was negative aspiration for blood and any other type of fluid, and the patient was given 6 mL of normal saline, 60 mg of Kenalog. Following the procedure, the patient was taken to the recovery room with stable vital signs, neurologically intact. MD DYAN Ricardo/CISCO , 10:11 AM , 10:20 AM
--- NOTE | 2018-03-05 14:26 | M5 ---
cc: Porter Waggoner MD DATE OF CONSULT: 02/28/2018 HISTORY OF PRESENT ILLNESS: Ms. Loza has chronic low back pain, which has been proven to be secondary to bilateral sacroiliac joint pain after many injections. She is currently undergoing a trial of peripheral nerve stimulation. She states that this completely relieves all of her back pain. When she turns the stimulator off within 2 hours, her back pain has returned to a severe level and then if she turns the stimulator back on again within 20 minutes, the pain is gone. So she has had a dramatic reduction in her pain and a corresponding increase in her functional capability. We believe that it is medically appropriate and medically indicated that we proceed with long-term stimulation by implanting a pulse generator. Porter Waggoner MD WRM/TL , 02:13 PM , 02:25 PM
== END | disposition home or self-care (01) ==
LOC: PHSDC 08:21
PROVIDERS: ATTEND Pain Medicine Interventional Pain Medicine
DX: M54.5 Low back pain (principal); M53.3 Sacrococcygeal disorders, not elsewhere classified; G89.29 Other chronic pain
CPT/HCPCS: 62321; 99152; J2175; J3301

== ENCOUNTER → 2018-03-07 | Day surgery (SDC) | payer MEDICARE ==
[~2018-03-07] VITALS: Ht 160 cm; Wt 73.0 kg
[~2018-03-07] MED LIST changes: +BUPIVACAINE/EPINEPHRINE 0.5% PF 10 ML VIAL ONE; +CHLORHEXIDINE GLUCONATE 2 % 1 PACK (2 CLOTHS) TOPICAL PRN; +LACTATED RINGER'S 1000 ML IV PRN; -LIDOCAINE HCL 1% 30 ML VIAL INFIL ONE; -MEPERIDINE HCL 25 MG/ML VIAL IV ONE; +METOPROLOL TARTRATE 25 MG TAB PO PRN; +POVIDONE IODINE 5% (ANTISEPSIS KIT) 4 APPLICATIONS EACH NARE PRN; -PROPOFOL 200 MG/20 ML AMP IV ONE; +SODIUM CHLORID 0.9% 500 ML IV PRN; -SODIUM CHLORIDE 0.9% 10 ML VIAL ONE; -TRIAMCINOLONE ACETONIDE 40 MG/ML VIAL NERV BLOCK ONE; +VANCOMYCIN HCL 500 MG ON-CALL/NS 100 ML IV SCH; +ceFAZolin 1,000 MG/NS 100 ML IV SCH
[2018-03-07 13:30] VITALS: BP 169/72; PULSE 62; RESP 16; TEMP 98.1; O2SAT 98
--- NOTE | 2018-03-07 14:12 | MR ---
cc: Porter Waggoner MD DATE: 03/07/2018 DATE OF PROCEDURE: 03/07/2018 PROCEDURE PERFORMED: Implantation of [employer] dual channel nonrechargeable pulse generator. PREPROCEDURE DIAGNOSES: Lumbar radiculopathy and clunial nerve neuropathy. POSTPROCEDURE DIAGNOSES: Lumbar radiculopathy and clunial nerve neuropathy. PROCEDURE NOTE: IV was started in the holding area. The patient was given IV antibiotics, surgical consents were signed and the surgical site was marked. The patient was taken to the operating room, given general LMA anesthesia and placed the right lateral decubitus position. The distal extension wires in the left flank were prepped with alcohol and cut with sterile scissors. The left flank incision and the left abdominal area were infiltrated with 0.5% Marcaine containing epinephrine. The left flank incision was opened. The distal extension wires were disconnected from the stimulating electrodes by loosening Hussein screws. Then, an incision was made in the left subcostal area and a subcutaneous pocket was created. Then, a tunneling device was used to tunnel the distal extension wire from the abdominal incision to the left flank incision. There, the distal extension wire was connected to the stimulating lead by tightening Hussein screws and covering the connection with a Silastic cover secured at both ends with 2-0 Ethibond suture. Then, the distal extension wire was connected to the [employer] dual channel rechargeable pulse generator by tightening Hussein screws. Impedance was checked at the bedside and found to be appropriate throughout all of the electrodes. Then, each incision was irrigated with Betadine. The pulse generator was placed in the subcutaneous pocket with the letter side facing the skin and this was anchored to the underlying fascia using two 2-0 Ethibond sutures. Then, the left flank incision and the left abdominal incision were closed using 3-0 Monocryl in the subcuticular tissue and 3-0 nylon on the skin. The incisions were covered with sterile adhesive dressings and the patient was taken to the recovery room with stable vital signs, neurologically intact. MD DYAN Ricardo/PHOEBE , 01:50 PM , 02:11 PM
== END | disposition home or self-care (01) ==
LOC: PHSDC 09:15
PROVIDERS: ATTEND Pain Medicine Interventional Pain Medicine
DX: M54.16 Radiculopathy, lumbar region (principal); G62.9 Polyneuropathy, unspecified
CPT/HCPCS: 00300; 63685; C1820; J0690; J3370; J7120